=== PATIENT | female | born 1975 | race Caucasian/White ===

== ENCOUNTER 2019-03-17 09:37 | Emergency (ER) | payer OTHER ==
[2019-03-17 10:00] VITALS: BMI 32.5
[2019-03-17] MEDS ORDERED: METOCLOPRAMIDE HCL INJECTION 10 MG/2 ML VIAL IVPB ONE (10:48)
[2019-03-17] MEDS ORDERED: FAMOTIDINE 20 MG/50 ML IVPB 20 MG/50 ML MG IVPB ONE ×2 (10:48→10:53)
[2019-03-17] MEDS ORDERED: MAG HYDROX/AL HYDROX/SIMETH 30 ML UNIT-DOSE CUP PO ONE (10:48)
[2019-03-17] MEDS ORDERED: LACTATED RINGERS SOLUTION 1000 ML INFUS.BAG IV ONE ×2 (10:49→12:02)
[2019-03-17] MEDS ORDERED: METOCLOPRAMIDE HCL INJECTION 10 MG/2 ML VIAL ONE (10:52)
[2019-03-17] MEDS ORDERED: ACETAMINOPHEN 1000 MG/100 ML VIAL (NON FORMULARY) IVPB ONE (10:53)
[2019-03-17] MEDS ORDERED: MAG HYDROX/AL HYDROX/SIMETH 30 ML UNIT-DOSE CUP ONE (10:53)
--- NOTE | 2019-03-17 10:55 | PDOC ---
History of Present Illness - General Chief Complaint: Pain, Acute Stated Complaint: NAUSEA/DIARRHEA Time Seen by Provider: 03/17/19 10:35 History Source: Patient, Care Provider - History of Present Illness Initial Comments: 03/17/19 10:50 Patient with past medical history of cholecystectomy and hypothyroidism on Synthroid presented with complaint of sudden onset of epigastric pain with nausea and severe diarrhea since overnight status post eating homemade salad. Patient reported feeling tactile fever and chills overnight and standing and started having multiple episodes of loose stool and now feeling weak due to having severe diarrhea. Patient reported increased pain to epigastric region when she eats. Denies vomiting. Patient did not take temperature at home. Patient did not take anything for symptoms. Reported history of gallstone over a year ago and had cholecystectomy a year ago. Denies any other symptoms Is this a multiple visit Asthma Patient?: No Timing/Duration: 24 hours Past History - Past Medical History Allergies/Adverse Reactions: Allergies Allergy/AdvReac Type Severity Reaction Status Date / Time Shellfish Allergy hives, Verified 03/17/19 09:55 swelling Home Medications: Ambulatory Orders Famotidine [Pepcid -] 40 mg PO DAILY #7 tablet 03/17/19 Levothyroxine Sodium [Levoxyl] 50 mcg PO DAILY 03/17/19 Loperamide HCl [Loperamide] 2 mg PO Q8H PRN #12 capsule 03/17/19 Mag Hydrox/Aluminum Hyd/Simeth [Maalox Advanced Suspension] 30 ml PO Q8H PRN # 200 ml 03/17/19 Ondansetron [Zofran *Odt*] 4 mg SL Q8H PRN #12 od.tablet 03/17/19 acetaZOLAMIDE [Diamox Sequels -] 500 mg PO BID 03/17/19 GI Disorders: Yes (diverticulitis) - Surgical History Cholecystectomy: Yes - Psycho Social/Smoking Cessation Hx Smoking Status: No Smoking History: Unknown if ever smoked Number of Cigarettes Smoked Daily: 0 Hx Alcohol Use: No Drug/Substance Use Hx: No Substance Use Type: None Review of Systems - Review of Systems Able to Perform ROS?: Yes Is the patient limited Welsh proficient: No Constitutional: Yes: See HPI, Chills, Fever (tactile), Malaise, Weakness HEENTM: No: Symptoms Reported, See HPI, Eye Pain, Blurred Vision, Tearing, Recent change in vision, Double Vision, Cataracts, Ear Pain, Ocular Prothesis, Ear Discharge, Nose Pain, Nose Congestion, Tinnitus, Nose Bleeding, Hearing Loss , Throat Pain, Throat Swelling, Mouth Pain, Dental Problems, Difficulty Swallowing, Mouth Swelling, Other Respiratory: No: Symptoms reported, See HPI, Cough, Orthopnea, Shortness of Breath, SOB with Exertion, SOB at Rest, Stridor, Wheezing, Productive cough, Hemoptysis, Other Cardiac (ROS): No: Symptoms Reported, See HPI, Chest Pain, Edema, Irregular Heart Rate, Lightheadedness, Palpitations, Syncope, Chest Tightness, Other ABD/GI: Yes: Symptoms Reported, See HPI, Diarrhea, Nausea, Abdominal cramping ( epigastric pain). No: Abdominal Distended, Abd. Pain w/ defecation, Blood Streaked Bowels, Difficulty Swallowing, Poor Appetite, Rectal Bleeding, Vomiting , Indigestion : No: Symptoms Reported, Dysuria, Discharge, Frequency, Flank Pain, Urgency Musculoskeletal: No: Symptoms Reported All Other Systems: Reviewed and Negative *Physical Exam - Vital Signs Last Vital Signs Temp Pulse Resp BP Pulse Ox 99.8 F H 116 H 18 112/60 99 03/17/19 09:58 03/17/19 09:58 03/17/19 09:58 03/17/19 09:58 03/17/19 09:58 - Physical Exam 03/17/19 10:55 GENERAL: Well developed, well nourished. Awake and alert. No acute distress. HEENT: Normocephalic, atraumatic. PERRLA, EOMI. No conjunctival pallor. Sclera are non-icteric. Moist mucous membranes. Oropharynx is clear. NECK: Supple. Full ROM. CARDIOVASCULAR: Regular rate and rhythm. No murmurs, rubs, or gallops. Distal pulses are 2+ and symmetric. PULMONARY: No evidence of respiratory distress. Lungs clear to auscultation bilaterally. No wheezing, rales or rhonchi. ABDOMINAL: Soft. Moderate epigastric tenderness. Non-distended. No rebound or guarding. No organomegaly. Normoactive bowel sounds. MUSCULOSKELETAL Normal range of motion at all joints. SKIN: Warm and dry. Normal capillary refill. No rashes. No jaundice. NEUROLOGICAL: Alert, awake, appropriate. Gait is normal without ataxia. PSYCHIATRIC: Cooperative. Good eye contact. Appropriate mood General Appearance: Yes: Nourished, Appropriately Dressed. No: Apparent Distress ED Treatment Course - LABORATORY CBC & Chemistry Diagram: 03/17/19 11:09 03/17/19 11:09 Medical Decision Making - Medical Decision Making 03/17/19 10:52 Patient with past medical history of cholecystectomy and hypothyroidism on Synthroid presented with complaint of sudden onset of epigastric pain with nausea and severe diarrhea since overnight status post eating homemade salad. Patient reported feeling tactile fever and chills overnight and standing and started having multiple episodes of loose stool and now feeling weak due to having severe diarrhea. Patient reported increased pain to epigastric region when she eats. Denies vomiting. Patient did not take temperature at home. Patient did not take anything for symptoms. Reported history of gallstone over a year ago and had cholecystectomy a year ago. Denies any other symptoms Exam significant for moderate tenderness epigastric region without guarding or rebound. Patient with low temp of 99.9 F orally. Patient in no acute distress. Symptoms likely viral syndrome versus gastritis versus less likely pancreatitis. CBC, CMP and lipase lab ordered. IV hydration with normal saline 1 L ordered. Pepcid 20 mg IV, Reglan 10 mg IV and Tylenol 1 g IV ordered for abdominal pain. Will consider abdominal ultrasound based on lab results 03/17/19 12:42 CBC and chemistry lab shows no acute abnormality. Patient still afebrile and reported improvement in symptoms after 2 L lactated Ringer IV hydration and Reglan. Patient symptoms likely viral syndrome stable for outpatient management on Pepcid twice daily for abdominal pain, Zofran as needed for nausea and vomiting and Maalox for abdominal discomfort with PCP follow-up Discharge - Discharge Information Problems reviewed: Yes Clinical Impression/Diagnosis: Viral syndrome, Gastroenteritis, Nausea Condition: Improved Disposition: HOME - Admission No - Additional Discharge Information Prescriptions: Famotidine [Pepcid -] 40 mg PO DAILY #7 tablet Loperamide HCl [Loperamide] 2 mg PO Q8H PRN #12 capsule PRN Reason: diarrhea Mag Hydrox/Aluminum Hyd/Simeth [Maalox Advanced Suspension] 30 ml PO Q8H PRN # 200 ml PRN Reason: abdominal discomfort Ondansetron [Zofran *Odt*] 4 mg SL Q8H PRN #12 od.tablet PRN Reason: nausea - Follow up/Referral Referrals: Yaima Ash [Primary Care Provider] - - Patient Discharge Instructions Patient Printed Discharge Instructions: DI for Viral Gastroenteritis -- Adult Additional Instructions: Your blood work was normal. The urine was normal as well. Your symptoms likely caused by viral stomach infection. Take prescribed medication as prescribed for diarrhea and abdominal pain. Increase fluid intake. Follow-up with primary care as needed - Post Discharge Activity
[2019-03-17 11:42] LABS: URINE APPEARANCE CLEAR; URINE BILIRUBIN NEGATIVE (NEGATIVE); URINE COLOR YELLOW; URINE GLUCOSE (UA) NEGATIVE (NEGATIVE); URINE KETONE NEGATIVE (NEGATIVE); URINE LEUK ESTERASE NEGATIVE (NEGATIVE); URINE NITRITE NEGATIVE (NEGATIVE); URINE PROTEIN TRACE (NEGATIVE); URINE UROBILINOGEN 0.2 mg/dL (0.2-1.0)
[2019-03-17 11:55] LABS: BASO % 0.3 % (0-2.0); EOS % 0.1 % (0-4.5); HEMATOCRIT 43.2 % (32.4-45.2); HEMOGLOBIN 14.3 GM/dL (10.7-15.3); LYMPH % 4.4 % (8-40); MCH 29.8 pg (25.7-33.7); MCHC 33.2 g/dl (32.0-36.0); MEAN CELL VOLUME 89.7 fl (80-96); MEAN PLT VOLUME 11.6 fl (7.5-11.1); MONO % 3.3 % (3.8-10.2); NEUT % 91.9 % (42.8-82.8); PLATELET COUNT 147 K/MM3 (134-434); RBC 4.81 M/mm3 (3.60-5.2); RDW 13.7 % (11.6-15.6); WHITE BLOOD COUNT 9.4 K/mm3 (4.0-10.0)
[2019-03-17] MEDS ORDERED: ACETAMINOPHEN INJECTION 100 ML IVPB ONE (12:09)
[2019-03-17 12:10] LABS: ALBUMIN 3.8 g/dl (3.4-5.0); BILIRUBIN,TOTAL 0.4 mg/dL (0.2-1); BLOOD UREA NITROGEN 11.6 mg/dL (7-18); CALCIUM 8.5 mg/dL (8.5-10.1); CREATININE 0.6 mg/dL (0.55-1.3); POTASSIUM 3.5 mmol/L (3.5-5.1)
[2019-03-17 12:32] LABS: ANISOCYTOSIS 2+; MACROCYTOSIS 0; PLATELET ESTIMATE DECREASED
--- NOTE | 2019-03-17 12:38 | PDOC ---
*Physical Exam - Vital Signs Last Vital Signs Temp Pulse Resp BP Pulse Ox 99.8 F H 116 H 18 112/60 99 03/17/19 09:58 03/17/19 09:58 03/17/19 09:58 03/17/19 09:58 03/17/19 09:58 ED Treatment Course - LABORATORY CBC & Chemistry Diagram: 03/17/19 11:09 03/17/19 11:09 - ADDITIONAL ORDERS Additional order review: Laboratory Results 03/17/19 03/17/19 03/17/19 11:09 11:09 11:09 Sodium Potassium Chloride Carbon Dioxide Anion Gap BUN Creatinine Est GFR (CKD-EPI)AfAm Est GFR (CKD-EPI)NonAf Random Glucose Calcium Total Bilirubin AST ALT Alkaline Phosphatase Total Protein Albumin Lipase 281 Urine Color Yellow Urine Appearance Clear Urine pH 5.0 Ur Specific Solomon 1.023 Urine Protein Trace Urine Glucose (UA) Negative Urine Ketones Negative Urine Blood Negative Urine Nitrite Negative Urine Bilirubin Negative Urine Urobilinogen 0.2 Ur Leukocyte Esterase Negative Urine HCG, Qual Negative 03/17/19 11:09 Sodium 139 Potassium 3.5 Chloride 113 H Carbon Dioxide 17 L Anion Gap 9 BUN 11.6 Creatinine 0.6 Est GFR (CKD-EPI)AfAm 128.48 Est GFR (CKD-EPI)NonAf 110.86 Random Glucose 97 Calcium 8.5 Total Bilirubin 0.4 AST 14 L ALT 13 Alkaline Phosphatase 65 Total Protein 7.0 Albumin 3.8 Lipase Urine Color Urine Appearance Urine pH Ur Specific Solomon Urine Protein Urine Glucose (UA) Urine Ketones Urine Blood Urine Nitrite Urine Bilirubin Urine Urobilinogen Ur Leukocyte Esterase Urine HCG, Qual 03/17/19 11:09 RBC 4.81 MCV 89.7 MCHC 33.2 RDW 13.7 D MPV 11.6 H Neutrophils % 91.9 H D Lymphocytes % 4.4 L D Monocytes % 3.3 L Eosinophils % 0.1 D Basophils % 0.3 - Medications Given in the ED: ED Medications Discontinued Medications Generic Name Dose Route Start Last Admin Trade Name Freq PRN Reason Stop Dose Admin Acetaminophen 1,000 mg 03/17/19 10:53 03/17/19 11:25 Ofirmev Injection - IVPB 03/17/19 10:54 1,000 mg ONCE ONE Administration Al Hydroxide/Mg Hydroxide 30 ml 03/17/19 10:48 03/17/19 11:24 Mylanta Oral Suspension - PO 03/17/19 10:49 30 ml ONCE ONE Administration Famotidine/Sodium Chloride 20 mg in 50 mls @ 100 mls/hr 03/17/19 10:48 11:24 Pepcid 20 Mg Premixed Ivpb - IVPB 03/17/19 11:17 100 mls/hr ONCE ONE Administration Lactated Ringer's 1,000 ml 03/17/19 10:49 03/17/19 11:24 Lactated Ringers Solution IV 03/17/19 10:50 1,000 ml ONCE ONE Administration Lactated Ringer's 1,000 ml 03/17/19 12:02 03/17/19 12:11 Lactated Ringers Solution IV 03/17/19 12:03 1,000 ml ONCE ONE Administration Metoclopramide HCl 10 mg 03/17/19 10:48 03/17/19 11:24 Reglan Injection - IVPB 03/17/19 10:49 10 mg ONCE ONE Administration Medical Decision Making - Medical Decision Making 03/17/19 12:38 The patient was seen and evaluated in conjunction with DAYAN El under my direct supervision, ancillary studies were reviewed. I independently interviewed and evaluated the patient and I agree with the plan as outlined by DAYAN El. 43y F hx of cholecystectomy, thyroid disease presents with epigastric, nonradiating epigastric pain associated with diarrhea associated with subjective fevers. Sx wrse with eating. Denies cp, sob, vomiting. consider likely enteritis, no focal tendenress/rebound to suggest appendicits, diveriticulitis or other surgical emergency. labs reviewed and pt was treated supportively with improvement of her symtoms. Pt dc with supportive care and return precautions were discussed. Discharge - Discharge Information Problems reviewed: Yes Clinical Impression/Diagnosis: Viral syndrome, Gastroenteritis, Nausea Condition: Improved Disposition: HOME - Additional Discharge Information Prescriptions: Famotidine [Pepcid -] 40 mg PO DAILY #7 tablet Loperamide HCl [Loperamide] 2 mg PO Q8H PRN #12 capsule PRN Reason: diarrhea Mag Hydrox/Aluminum Hyd/Simeth [Maalox Advanced Suspension] 30 ml PO Q8H PRN # 200 ml PRN Reason: abdominal discomfort Ondansetron [Zofran *Odt*] 4 mg SL Q8H PRN #12 od.tablet PRN Reason: nausea - Follow up/Referral Referrals: Yaima Ash [Primary Care Provider] - - Patient Discharge Instructions Patient Printed Discharge Instructions: DI for Viral Gastroenteritis -- Adult Additional Instructions: Your blood work was normal. The urine was normal as well. Your symptoms likely caused by viral stomach infection. Take prescribed medication as prescribed for diarrhea and abdominal pain. Increase fluid intake. Follow-up with primary care as needed - Post Discharge Activity
[2019-03-17 13:02] VITALS: BP 100/61; PULSE 78; TEMP 97.8
== END 2019-03-17 12:57 | disposition home or self-care (01) ==
LOC: JER 09:37
PROC: 3E033GC Introduction of Other Therapeutic Substance into Peripheral Vein, Percutaneous Approach (ICD-10-PCS; principal; 2019-03-17)
PROC: 3E033GC Introduction of Other Therapeutic Substance into Peripheral Vein, Percutaneous Approach (ICD-10-PCS; 2019-03-17)
PROC: 3E033NZ Introduction of Analgesics, Hypnotics, Sedatives into Peripheral Vein, Percutaneous Approach (ICD-10-PCS; 2019-03-17)
DX: A08.4 Viral intestinal infection, unspecified (principal); B97.89 Other viral agents as the cause of diseases classified elsewhere; E03.9 Hypothyroidism, unspecified; Z90.49 Acquired absence of other specified parts of digestive tract; Z87.19 Personal history of other diseases of the digestive system; Z91.013 Allergy to seafood
CPT/HCPCS: 36415; 80053; 81003; 83690; 84703; 85025; 96365; 96375; 99283-25; J0131

== ENCOUNTER 2021-04-29 09:16 | Emergency (ER) | payer OTHER ==
[2021-04-29 09:24] VITALS: TEMP 98.1; BMI 32.9
[2021-04-29] MEDS ORDERED: SODIUM CHLORIDE 0.9% 500 ML INFUS.BAG IV ONE (09:51)
[2021-04-29] MEDS ORDERED: morphine CARPU-JECT 4 MG/1 ML DISP.SYRIN IVPUSH ONE (09:52)
[2021-04-29 10:09] LABS: EPI CELLS 8 /uL (0-25.1); HYALINE CASTS 1 /uL (0-3.1); URINE APPEARANCE CLEAR; URINE BACTERIA 86 /uL (0-1359); URINE BILIRUBIN NEGATIVE (NEGATIVE); URINE COLOR YELLOW; URINE GLUCOSE (UA) NEGATIVE (NEGATIVE); URINE KETONE NEGATIVE (NEGATIVE); URINE LEUK ESTERASE NEGATIVE (NEGATIVE); URINE NITRITE NEGATIVE (NEGATIVE); URINE PROTEIN NEGATIVE (NEGATIVE); URINE RBC 11 /uL (0-23.9); URINE UROBILINOGEN 0.2 mg/dL (0.2-1.0); URINE WBC 6 /uL (0-25.8)
[2021-04-29] MEDS ORDERED: morphine SULFATE 4 MG/ML VIAL ONE ×2 (10:15→13:20)
[2021-04-29 10:45] LABS: CALCIUM 8.8 mg/dL (8.5-10.1)
[2021-04-29 10:47] LABS: ALBUMIN 3.7 g/dl (3.4-5.0); BLOOD UREA NITROGEN 11.7 mg/dL (7-18)
[2021-04-29 10:50] LABS: CREATININE 0.4 mg/dL (0.55-1.3)
[2021-04-29 10:51] LABS: BILIRUBIN,TOTAL 0.4 mg/dL (0.2-1)
[2021-04-29] MEDS ORDERED: ACETAMINOPHEN 1000 MG/100 ML BAG IVPB ONE (10:56)
[2021-04-29] MEDS ORDERED: ACETAMINOPHEN INJECTION 100 ML IVPB ONE (11:02)
[2021-04-29 11:14] LABS: BASO % 0.1 % (0-2.0); EOS % 0.2 % (0-4.5); HEMOGLOBIN 13.6 GM/dL (10.7-15.3); LYMPH % 9.4 % (8-40); MCH 29.5 pg (25.7-33.7); MCHC 33.1 g/dl (32.0-36.0); MEAN PLT VOLUME 10.9 fl (7.5-11.1); NEUT % 85.3 % (42.8-82.8); PLATELET COUNT 154 10^3/uL (134-434); RDW 13.8 % (11.6-15.6); WHITE BLOOD COUNT 12.1 K/mm3 (4.0-10.0)
[2021-04-29 11:24] LABS: ALBUMIN 3.3 g/dl (3.4-5.0); BLOOD UREA NITROGEN 11.6 mg/dL (7-18); CALCIUM 8.1 mg/dL (8.5-10.1)
[2021-04-29 11:27] LABS: CREATININE 0.4 mg/dL (0.55-1.3)
[2021-04-29 11:29] LABS: BILIRUBIN,TOTAL 0.4 mg/dL (0.2-1); TOT PROT 6.2 g/dl (6.4-8.2)
[2021-04-29] MEDS ORDERED: ONDANSETRON 4 MG/2 ML VIAL IVPUSH ONE (12:48)
[2021-04-29] MEDS ORDERED: morphine CARPU-JECT 2 MG/1 ML DISP.SYRIN IVPUSH ONE (12:48)
[2021-04-29] MEDS ORDERED: CEFTRIAXONE 1,000 MG in DEXTROSE 5%-WATER - 50 ML IVPB ONE (12:49)
[2021-04-29] MEDS ORDERED: ONDANSETRON 4 MG/2 ML VIAL ONE (13:20)
[2021-04-29] MEDS ORDERED: CEFTRIAXONE 1 GM/50 ML BAG ONE (13:21)
[2021-04-29 14:59] LABS: ALBUMIN 3.2 g/dl (3.4-5.0); BILIRUBIN,TOTAL 0.4 mg/dL (0.2-1); CALCIUM 8.1 mg/dL (8.5-10.1); CREATININE 0.4 mg/dL (0.55-1.3); TOT PROT 6.2 g/dl (6.4-8.2)
[2021-04-29 15:16] VITALS: BP 120/62; PULSE 98
== END 2021-04-29 15:24 | disposition home or self-care (01) ==
LOC: JER 09:16
PROC: 3E033GC Introduction of Other Therapeutic Substance into Peripheral Vein, Percutaneous Approach (ICD-10-PCS; principal; 2021-04-29)
DX: K57.92 Diverticulitis of intestine, part unspecified, without perforation or abscess without bleeding (principal)
CPT/HCPCS: 36415; 74177-TC; 80053; 81003; 83690; 84703; 85025; 87086; 99285-25; Q9967

== ENCOUNTER 2022-02-09 07:52 | Emergency (ER) | payer OTHER ==
[2022-02-09 08:04] VITALS: BP 103/70; PULSE 79; RESP 18; TEMP 98.2; BMI 32.4
[2022-02-09] MEDS ORDERED: KETOROLAC TROMETHAMINE 30 MG/1 ML VIAL IM ONE (08:42)
[2022-02-09] MEDS ORDERED: KETOROLAC TROMETHAMINE 30 MG/1 ML VIAL ONE (08:53)
== END 2022-02-09 10:26 | disposition home or self-care (01) ==
LOC: JERFT 07:52
PROC: 3E023GC Introduction of Other Therapeutic Substance into Muscle, Percutaneous Approach (ICD-10-PCS; principal; 2022-02-09)
DX: M54.6 Pain in thoracic spine (principal)
CPT/HCPCS: 71046-TC-FY; 99284-25

== ENCOUNTER 2022-03-16 08:26 | Emergency (ER) | payer OTHER ==
[2022-03-16 08:37] VITALS: BP 145/58; PULSE 82; RESP 18; TEMP 98; BMI 32.4
[2022-03-16] MEDS ORDERED: SODIUM CHLORIDE 0.9% 500 ML INFUS.BAG IV ONE (09:00)
[2022-03-16] MEDS ORDERED: ACETAMINOPHEN 1000 MG/100 ML BAG IVPB ONE (09:00)
[2022-03-16] MEDS ORDERED: FAMOTIDINE 20 MG/50 ML IVPB 20 MG/50 ML MG IVPB ONE ×2 (09:00→09:17)
[2022-03-16] MEDS ORDERED: ACETAMINOPHEN INJECTION 100 ML IVPB ONE (09:17)
[2022-03-16 09:51] LABS: BASO % 0.4 % (0-2.0); EOS % 2.4 % (0-4.5); HEMATOCRIT 39.4 % (32.4-45.2); LYMPH % 21.6 % (8-40); MCH 29.8 pg (25.7-33.7); MCHC 32.9 g/dl (32.0-36.0); MEAN CELL VOLUME 90.4 fl (80-96); MEAN PLT VOLUME 11.1 fl (7.5-11.1); MONO % 5.2 % (3.8-10.2); NEUT % 70.4 % (42.8-82.8); PLATELET COUNT 208 10^3/uL (134-434); RBC 4.36 M/mm3 (3.60-5.2); RDW 13.3 % (11.6-15.6); WHITE BLOOD COUNT 8.4 K/mm3 (4.0-10.0)
[2022-03-16 09:56] LABS: URINE APPEARANCE CLEAR; URINE BILIRUBIN NEGATIVE (NEGATIVE); URINE COLOR YELLOW; URINE GLUCOSE (UA) NEGATIVE (NEGATIVE); URINE KETONE NEGATIVE (NEGATIVE); URINE LEUK ESTERASE NEGATIVE (NEGATIVE); URINE NITRITE NEGATIVE (NEGATIVE); URINE PROTEIN NEGATIVE (NEGATIVE); URINE UROBILINOGEN 0.2 mg/dL (0.2-1.0)
[2022-03-16 10:01] LABS: INR 1.17 (0.83-1.09); PROTHROMBIN TIME (PATIENT) 13.6 SEC (9.7-13.0)
[2022-03-16 10:08] LABS: ALBUMIN 3.6 g/dl (3.4-5.0); BLOOD UREA NITROGEN 7.8 mg/dL (7-18)
[2022-03-16 10:10] LABS: CALCIUM 8.8 mg/dL (8.5-10.1)
[2022-03-16 10:11] LABS: CREATININE 0.5 mg/dL (0.55-1.3)
[2022-03-16 10:12] LABS: TOT PROT 7.1 g/dl (6.4-8.2)
[2022-03-16 10:28] LABS: BILIRUBIN,TOTAL 0.6 mg/dL (0.2-1)
== END 2022-03-16 12:15 | disposition home or self-care (01) ==
LOC: JER 08:26
PROC: 3E0333Z Introduction of Anti-inflammatory into Peripheral Vein, Percutaneous Approach (ICD-10-PCS; principal; 2022-03-16)
PROC: 3E033GC Introduction of Other Therapeutic Substance into Peripheral Vein, Percutaneous Approach (ICD-10-PCS; 2022-03-16)
DX: K57.32 Diverticulitis of large intestine without perforation or abscess without bleeding (principal)
CPT/HCPCS: 0241U-QW; 36415; 74177-TC; 80053; 81003; 84703; 85025; 85610; 87086; 99285-25; Q9967

== ENCOUNTER 2022-08-09 08:30 | Emergency (ER) | payer OTHER ==
[2022-08-09 08:36] VITALS: BP 110/79; PULSE 90; RESP 18; TEMP 98.3; BMI 31.3
[2022-08-09 09:37] LABS: BASO % 0.4 % (0-2.0); EOS % 0.6 % (0-4.5); HEMATOCRIT 42.5 % (32.4-45.2); HEMOGLOBIN 13.5 GM/dL (10.7-15.3); LYMPH % 10.6 % (8-40); MCH 28.9 pg (25.7-33.7); MCHC 31.7 g/dl (32.0-36.0); MEAN PLT VOLUME 12.1 fl (7.5-11.1); MONO % 6.2 % (3.8-10.2); NEUT % 82.2 % (42.8-82.8); PLATELET COUNT 182 10^3/uL (134-434); RBC 4.67 M/mm3 (3.60-5.2); RDW 13.5 % (11.6-15.6); WHITE BLOOD COUNT 12.9 K/mm3 (4.0-10.0)
[2022-08-09 10:12] LABS: POTASSIUM 3.6 mmol/L (3.5-5.1)
[2022-08-09 10:16] LABS: ALBUMIN 3.7 g/dl (3.4-5.0); BLOOD UREA NITROGEN 13.6 mg/dL (7-18)
[2022-08-09 10:19] LABS: CREATININE 0.5 mg/dL (0.55-1.3)
[2022-08-09 10:20] LABS: TOT PROT 7.4 g/dl (6.4-8.2)
[2022-08-09 10:22] LABS: BILIRUBIN,TOTAL 0.7 mg/dL (0.2-1)
[2022-08-09 10:27] LABS: URINE COLOR YELLOW
[2022-08-09 10:28] LABS: URINE APPEARANCE CLEAR; URINE BILIRUBIN NEGATIVE (NEGATIVE); URINE GLUCOSE (UA) NEGATIVE (NEGATIVE); URINE KETONE NEGATIVE (NEGATIVE); URINE LEUK ESTERASE 1+ (NEGATIVE); URINE NITRITE NEGATIVE (NEGATIVE); URINE PROTEIN TRACE (NEGATIVE)
[2022-08-09 10:29] LABS: EPI CELLS 59.1 /uL (0-25.1); HYALINE CASTS 1.31 /uL (0-3.1); URINE BACTERIA 825.7 /uL (0-1359); URINE RBC 18.5 /uL (0-23.9); URINE WBC 65.6 /uL (0-25.8)
== END 2022-08-09 12:01 | disposition home or self-care (01) ==
LOC: JER 08:30
DX: R10.2 Pelvic and perineal pain (principal); K57.32 Diverticulitis of large intestine without perforation or abscess without bleeding
CPT/HCPCS: 36415; 74177-TC; 80053; 81003; 83605; 84703; 85025; 99285-25; Q9967

== ENCOUNTER 2022-08-15 16:51 | Emergency (ER) | payer OTHER ==
[2022-08-15 17:29] VITALS: BMI 31.3
[2022-08-15] MEDS ORDERED: ACETAMINOPHEN 1000 MG/100 ML BAG IVPB ONE (18:33)
[2022-08-15] MEDS ORDERED: ONDANSETRON 4 MG/2 ML VIAL IVPUSH ONE (18:33)
[2022-08-15] MEDS ORDERED: SODIUM CHLORIDE 0.9% 500 ML INFUS.BAG IV ONE (18:33)
[2022-08-15] MEDS ORDERED: ONDANSETRON 4 MG/2 ML VIAL ONE (18:39)
[2022-08-15] MEDS ORDERED: ACETAMINOPHEN INJECTION 100 ML IVPB ONE (18:39)
[2022-08-15 19:32] LABS: BASO % 0.4 % (0-2.0); EOS % 0.2 % (0-4.5); HEMATOCRIT 40.4 % (32.4-45.2); HEMOGLOBIN 12.8 GM/dL (10.7-15.3); LYMPH % 12.4 % (8-40); MCH 28.5 pg (25.7-33.7); MCHC 31.7 g/dl (32.0-36.0); MEAN CELL VOLUME 89.9 fl (80-96); MEAN PLT VOLUME 11.4 fl (7.5-11.1); MONO % 3.8 % (3.8-10.2); NEUT % 83.2 % (42.8-82.8); PLATELET COUNT 205 10^3/uL (134-434); RBC 4.49 M/mm3 (3.60-5.2); RDW 13.8 % (11.6-15.6)
[2022-08-15 19:55] LABS: POTASSIUM 3.9 mmol/L (3.5-5.1)
[2022-08-15 19:59] LABS: CALCIUM 9.5 mg/dL (8.5-10.1)
[2022-08-15 20:00] LABS: ALBUMIN 3.8 g/dl (3.4-5.0); BLOOD UREA NITROGEN 6.7 mg/dL (7-18); MAGNESIUM 2.1 mg/dL (1.8-2.4)
[2022-08-15 20:02] LABS: CREATININE 0.6 mg/dL (0.55-1.3)
[2022-08-15 20:04] LABS: BILIRUBIN,TOTAL 0.5 mg/dL (0.2-1)
[2022-08-15 22:48] LABS: URINE APPEARANCE CLEAR; URINE COLOR YELLOW
[2022-08-15 22:49] LABS: URINE BILIRUBIN NEGATIVE (NEGATIVE); URINE GLUCOSE (UA) NEGATIVE (NEGATIVE); URINE KETONE NEGATIVE (NEGATIVE); URINE LEUK ESTERASE NEGATIVE (NEGATIVE); URINE NITRITE NEGATIVE (NEGATIVE); URINE PROTEIN NEGATIVE (NEGATIVE); URINE UROBILINOGEN 0.2 mg/dL (0.2-1.0)
[2022-08-16 00:31] VITALS: BP 115/66; PULSE 56; RESP 16; TEMP 98.1
[2022-08-16] MEDS ORDERED: AMOX TR/POT CLAV 875MG/125MG TABLETS (FP) PO ONE (01:00)
[2022-08-16] MEDS ORDERED: AMOX TR/POT CLAV 875MG/125MG TABLETS (FP) ONE (01:03)
== END 2022-08-16 01:11 | disposition home or self-care (01) ==
LOC: JER 16:51
PROC: 3E033NZ Introduction of Analgesics, Hypnotics, Sedatives into Peripheral Vein, Percutaneous Approach (ICD-10-PCS; principal; 2022-08-15)
PROC: 3E033GC Introduction of Other Therapeutic Substance into Peripheral Vein, Percutaneous Approach (ICD-10-PCS; 2022-08-15)
DX: K57.92 Diverticulitis of intestine, part unspecified, without perforation or abscess without bleeding (principal); R10.32 Left lower quadrant pain; R11.2 Nausea with vomiting, unspecified; R15.2 Fecal urgency
CPT/HCPCS: 36415; 74177-TC; 80053; 81003; 83605; 83690; 83735; 84703; 85025; 87086; 87186; 93005; 93010; 99285-25; Q9967

== ENCOUNTER 2022-12-09 10:15 | Emergency (ER) | payer OTHER ==
[2022-12-09 10:28] VITALS: PULSE 72; BMI 27.6
[2022-12-09 11:19] LABS: EPI CELLS 22 /uL (0-25.1); HYALINE CASTS 1 /uL (0-3.1); PH,URINE 5.5 (5.0-8.0); URINE APPEARANCE CLEAR; URINE BACTERIA 703 /uL (0-1359); URINE BILIRUBIN NEGATIVE (NEGATIVE); URINE COLOR YELLOW; URINE GLUCOSE (UA) NEGATIVE (NEGATIVE); URINE KETONE NEGATIVE (NEGATIVE); URINE LEUK ESTERASE TRACE (NEGATIVE); URINE NITRITE NEGATIVE (NEGATIVE); URINE PROTEIN NEGATIVE (NEGATIVE); URINE RBC 19 /uL (0-23.9); URINE UROBILINOGEN 0.2 mg/dL (0.2-1.0); URINE WBC 13 /uL (0-25.8)
[2022-12-09] MEDS ORDERED: morphine CARPU-JECT 4 MG/1 ML DISP.SYRIN IVPUSH ONE (11:24)
[2022-12-09 11:31] LABS: HCG,QUALITATIVE URINE NEGATIVE
[2022-12-09] MEDS ORDERED: morphine SULFATE 4 MG/ML VIAL ONE (11:49)
[2022-12-09 11:59] LABS: BASO % 0.6 % (0-2.0); EOS % 0.9 % (0-4.5); HEMATOCRIT 40.3 % (32.4-45.2); HEMOGLOBIN 13.3 GM/dL (10.7-15.3); LYMPH % 20.4 % (8-40); MCH 28.9 pg (25.7-33.7); MEAN CELL VOLUME 87.6 fl (80-96); MEAN PLT VOLUME 11.8 fl (7.5-11.1); MONO % 5.7 % (3.8-10.2); NEUT % 72.4 % (42.8-82.8); PLATELET COUNT 189 10^3/uL (134-434); RDW 13.9 % (11.6-15.6); WHITE BLOOD COUNT 8.1 K/mm3 (4.0-10.0)
[2022-12-09 12:32] LABS: POTASSIUM 3.8 mmol/L (3.5-5.1)
[2022-12-09 12:35] LABS: CALCIUM 9.1 mg/dL (8.5-10.1)
[2022-12-09 12:36] LABS: BLOOD UREA NITROGEN 10.3 mg/dL (7-18)
[2022-12-09 12:38] LABS: CREATININE 0.5 mg/dL (0.55-1.3)
[2022-12-09 12:40] LABS: BILIRUBIN,TOTAL 0.8 mg/dL (0.2-1); TOT PROT 7.6 g/dl (6.4-8.2)
[2022-12-09] MEDS ORDERED: AMOX TR/POT CLAV 875MG/125MG TABLETS (FP) PO ONE (16:10)
[2022-12-09] MEDS ORDERED: KETOROLAC TROMETHAMINE 15 MG/ML VIAL IVPUSH ONE (16:11)
[2022-12-09] MEDS ORDERED: KETOROLAC TROMETHAMINE 15 MG/ML VIAL ONE (16:15)
[2022-12-09] MEDS ORDERED: AMOX TR/POT CLAV 875MG/125MG TABLETS (FP) ONE (16:15)
[2022-12-09 17:21] VITALS: BP 122/67; RESP 19; TEMP 98.6
== END 2022-12-09 17:21 | disposition home or self-care (01) ==
LOC: JER 10:15
PROC: 3E0333Z Introduction of Anti-inflammatory into Peripheral Vein, Percutaneous Approach (ICD-10-PCS; principal; 2022-12-09)
PROC: 3E033GC Introduction of Other Therapeutic Substance into Peripheral Vein, Percutaneous Approach (ICD-10-PCS; 2022-12-09)
DX: R10.84 Generalized abdominal pain (principal); R68.83 Chills (without fever); K59.00 Constipation, unspecified; K57.32 Diverticulitis of large intestine without perforation or abscess without bleeding
CPT/HCPCS: 36415; 74177-TC; 80053; 81003; 82150; 83690; 84703; 85025; 87086; 93005; 93010; 99285-25

== ENCOUNTER 2022-12-17 15:12 | Emergency (ER) | payer OTHER ==
[2022-12-17 16:29] VITALS: BP 128/73; PULSE 63; RESP 19; TEMP 97.9; BMI 29.0
== END 2022-12-17 21:19 | disposition left against medical advice (07) ==
LOC: JER 15:12
DX: R11.2 Nausea with vomiting, unspecified (principal); R19.7 Diarrhea, unspecified; K57.92 Diverticulitis of intestine, part unspecified, without perforation or abscess without bleeding; Z53.21 Procedure and treatment not carried out due to patient leaving prior to being seen by health care provider
CPT/HCPCS: 99281-25

== ENCOUNTER 2022-12-25 04:15 | Day surgery (SDC) | payer OTHER ==
[2022-12-20 13:16] VITALS: BMI 27.8
[2022-12-25] MEDS ORDERED: FENTANYL CITRATE/PF 50 MCG/ML VIAL ONE (07:38)
[2022-12-25] MEDS ORDERED: MIDAZOLAM HCL 2 MG/2 ML SINGLE DOSE VIAL ONE (07:38)
[2022-12-25] MEDS ORDERED: PROPOFOL 20 ML ONE (07:42)
[2022-12-25] MEDS ORDERED: LIDOCAINE HCL/PF 2% SDV 5ML VIAL ONE (07:42)
[2022-12-25] MEDS ORDERED: ceFAZolin SODIUM 1 GM VIAL ONE (07:42)
[2022-12-25] MEDS ORDERED: ONDANSETRON 4 MG/2 ML VIAL ONE (07:42)
[2022-12-25] MEDS ORDERED: SEVOFLURANE 250 ML BTL ONE (07:45)
[2022-12-25] MEDS ORDERED: IOHEXOL 300 MG/ML INFUS..BTL IV ONE (07:50)
[2022-12-25] MEDS ORDERED: ceFAZolin SODIUM 1 GM VIAL IVPB ONE (07:50)
[2022-12-25] MEDS ORDERED: KETOROLAC TROMETHAMINE 30 MG/1 ML VIAL ONE (08:16)
[2022-12-25] MEDS ORDERED: oxyCODONE HCL 5 MG TABLET PO PRN (08:24)
[2022-12-25] MEDS ORDERED: ACETAMINOPHEN 1000 MG/100 ML BAG IVPB PRN (08:27)
[2022-12-25] MEDS ORDERED: PROMETHAZINE HCL 25 MG/1 ML VIAL IVPB PRN (08:27)
[2022-12-25] MEDS ORDERED: ONDANSETRON 4 MG/2 ML VIAL IVPUSH PRN (08:27)
[2022-12-25] MEDS ORDERED: LACTATED RINGERS SOLUTION 1,000 ML IV SCH (08:30)
[2022-12-25] MEDS ORDERED: DEXTROSE 5%-0.45% SALINE 1,000 ML IV SCH (08:30)
[2022-12-25] MEDS ORDERED: ACETAMINOPHEN INJECTION 100 ML IVPB ONE (08:40)
[2022-12-25 10:55] VITALS: RESP 20
[2022-12-25 12:57] VITALS: BP 113/60; PULSE 61; TEMP 98
== END 2022-12-25 12:57 | disposition home or self-care (01) ==
LOC: JASU-SURG 04:15
PROVIDERS: ATTEND Urology
PROC: 0TC08ZZ Extirpation of Matter from Right Kidney, Via Natural or Artificial Opening Endoscopic (ICD-10-PCS; principal; 2022-12-25 07:30)
PROC: 0T768DZ Dilation of Right Ureter with Intraluminal Device, Via Natural or Artificial Opening Endoscopic (ICD-10-PCS; 2022-12-25 07:30)
DX: N20.0 Calculus of kidney (principal)
CPT/HCPCS: 36415; 76000-TC-FY; 81025; 82360; 88300-TC; 94760; C1758; C1769; C2617

== ENCOUNTER 2023-01-28 08:55 | Emergency (ER) | payer OTHER ==
[2023-01-28 09:05] VITALS: BP 128/80; PULSE 68; RESP 18; TEMP 98.1; BMI 28.7
== END 2023-01-28 10:39 | disposition home or self-care (01) ==
LOC: JER 08:55
DX: M79.641 Pain in right hand (principal); G56.01 Carpal tunnel syndrome, right upper limb
CPT/HCPCS: 73130-TC-RT-FY; 99283-25

== ENCOUNTER 2023-05-14 08:50 | Emergency (ER) | payer OTHER ==
[2023-05-14 08:57] VITALS: BP 110/56; PULSE 71; RESP 18; TEMP 98.4; BMI 27.8
[2023-05-14 09:57] LABS: PH,URINE 5.5 (5.0-8.0); URINE APPEARANCE CLEAR; URINE BILIRUBIN NEGATIVE (NEGATIVE); URINE COLOR YELLOW; URINE GLUCOSE (UA) NEGATIVE (NEGATIVE); URINE KETONE NEGATIVE (NEGATIVE); URINE LEUK ESTERASE NEGATIVE (NEGATIVE); URINE NITRITE NEGATIVE (NEGATIVE); URINE PROTEIN NEGATIVE (NEGATIVE); URINE UROBILINOGEN 0.2 mg/dL (0.2-1.0)
[2023-05-14 09:59] LABS: HCG,QUALITATIVE URINE Negative
[2023-05-14] MEDS ORDERED: PHENAZOPYRIDINE HCL 100 MG TABLET (FP) ONE (10:00)
[2023-05-14] MEDS: PHENAZOPYRIDINE HCL 100 MG TABLET (FP) PO ONE (10:00)
[2023-05-14] MEDS ORDERED: ACETAMINOPHEN 325 MG TABLET (FP) ONE (10:00)
[2023-05-14] MEDS: ACETAMINOPHEN 500 MG TABLET (FP) PO ONE (10:00)
[2023-05-14 10:33] LABS: BASO % 0.7 % (0-2.0); EOS % 1.5 % (0-4.5); HEMATOCRIT 38.6 % (32.4-45.2); HEMOGLOBIN 12.6 GM/dL (10.7-15.3); LYMPH % 25.8 % (8-40); MCH 29.2 pg (25.7-33.7); MCHC 32.7 g/dl (32.0-36.0); MEAN CELL VOLUME 89.1 fl (80-96); MEAN PLT VOLUME 11.7 fl (7.5-11.1); MONO % 6.8 % (3.8-10.2); NEUT % 65.2 % (42.8-82.8); PLATELET COUNT 180 10^3/uL (134-434); RBC 4.33 M/mm3 (3.60-5.2); WHITE BLOOD COUNT 5.9 K/mm3 (4.0-10.0)
[2023-05-14 11:01] LABS: POTASSIUM 3.7 mmol/L (3.5-5.1)
[2023-05-14 11:04] LABS: ALBUMIN 3.7 g/dl (3.4-5.0); BLOOD UREA NITROGEN 5.7 mg/dL (7-18)
[2023-05-14 11:06] LABS: CREATININE 0.5 mg/dL (0.55-1.3)
[2023-05-14 11:07] LABS: BILIRUBIN,TOTAL 0.5 mg/dL (0.2-1); TOT PROT 6.9 g/dl (6.4-8.2)
== END 2023-05-14 12:27 | disposition home or self-care (01) ==
LOC: JER 08:50
DX: R10.30 Lower abdominal pain, unspecified (principal); R10.13 Epigastric pain; R30.0 Dysuria; R35.0 Frequency of micturition; N83.292 Other ovarian cyst, left side
CPT/HCPCS: 36415; 76830-TC; 80053; 81003; 83690; 84703; 85025; 87086; 87491; 87591; 87661; 99284-25

== ENCOUNTER 2023-11-19 09:37 | Emergency (ER) | payer OTHER ==
[2023-11-19 11:47] VITALS: BP 118/78; PULSE 77; RESP 20; TEMP 98.5; BMI 29.4
== END 2023-11-19 10:45 | disposition home or self-care (01) ==
LOC: JERFT 09:37
DX: S89.91XA Unspecified injury of right lower leg, initial encounter (principal); M79.89 Other specified soft tissue disorders; X50.1XXA Overexertion from prolonged static or awkward postures, initial encounter
CPT/HCPCS: 99283-25